=== PATIENT | female | born 1960 | race Asian ===

== ENCOUNTER 2017-10-08 14:03 | Inpatient (IN) | payer MEDICAID ==
[~2017-10-08] VITALS: Ht 154.9 cm; Wt 51.0 kg
[2017-10-08] MEDS ORDERED: HALOPERIDOL 5 MG TABLET PO PRN (16:15)
[2017-10-08] MEDS ORDERED: ZOLPIDEM TARTRATE 10 MG TABLET PO PRN (16:15)
[2017-10-08] MEDS ORDERED: LORazepam 2 MG TABLET PO PRN (16:15)
[2017-10-08 17:07] VITALS: BP 115/70
[2017-10-08] MEDS ORDERED: INFLUENZA VIRUS VACCINE QVS 2017-18 (3YR+)/PF 60 MCG/0.5 ML SYRINGE IM ONE (19:45)
[2017-10-09 05:40] VITALS: BP 115/69
[2017-10-09 09:02] LABS: HEMATOCRIT 39.9 % (36-46); HEMOGLOBIN 12.8 g/dL (12.0-16.0); MEAN CORPUSCULAR HEMOGLOBIN 22.8 pg (26.0-34.0); MEAN CORPUSCULAR HGB CONC 32.1 G/dL (31.0-37.0); MEAN CORPUSCULAR VOLUME 71 fL (80-100); PLATELET COUNT (AUTO) 301 K/uL (150-450); RED BLOOD CELL COUNT(AUTO) 5.62 MIL/uL (4.00-5.20); WHITE BLOOD COUNT (AUTO) 4.5 K/uL (4.5-11.0)
[2017-10-09 09:06] VITALS: BP 111/69
[2017-10-09 09:13] LABS: HEMOGLOBIN A1C 4.6 % (4.5-6.2)
[2017-10-09 09:14] LABS: ALANINE AMINOTRANSFERASE 23 U/L (12-78); ALBUMIN 4.1 g/dL (3.4-5.0); ANION GAP 7 mmol/L (8-16); ASPARTATE AMINOTRANSFERASE 18 U/L (15-37); BILIRUBIN,TOTAL 0.3 mg/dL (0.1-1.0); CALCIUM, TOTAL 9.1 mg/dL (8.8-10.5); CARBON DIOXIDE 30 mmol/L (22-29); CHLORIDE 105 mmol/L (98-107); CREATININE 0.62 mg/dL (0.60-1.30); GLOMERULAR FILTR. RATE CALC > 60 mL/min (>60); POTASSIUM 4.5 mmol/L (3.5-5.1); SODIUM SERUM 142 mmol/L (136-145); THYROID STIMULATING HORMONE 0.91 uIU/mL (0.36-3.74); TOTAL PROTEIN, SERUM 7.1 g/dL (6.4-8.2); UREA NITROGEN, BLOOD 18 mg/dL (7-18)
[2017-10-09 09:28] LABS: CHOL/HDL RATIO 2.8 (3.9-5.7)
[2017-10-09 09:44] LABS: BAND NEUTROPHILS % (MANUAL) 9 % (1-5); LYMPHOCYTES % (MANUAL) 49 % (22-44); TOTAL CELLS COUNTED 100
[2017-10-09 09:45] LABS: RBC MORPHOLOGY COMMENT ABNORMAL RBC MORPH
[2017-10-09] MEDS ORDERED: IBUPROFEN 600 MG TABLET PO PRN (13:45)
[2017-10-09] MEDS: ACETAMINOPHEN 325 MG TABLET PO PRN (13:58)
[2017-10-09 14:00] VITALS: BP 120/86
[2017-10-09 16:05] VITALS: BP 102/60
[2017-10-10 06:41] VITALS: BP 112/63
[2017-10-10 08:29] VITALS: BP 106/64
[2017-10-10 16:10] VITALS: BP_SYST 124; BP_DIAS 45; BP_DIAS 75
[2017-10-11 00:03] VITALS: BP 113/62
[2017-10-11 08:30] VITALS: BP 106/65
[2017-10-11 16:14] VITALS: BP 138/62
[2017-10-12 05:59] VITALS: BP 109/60
[2017-10-12 08:10] VITALS: BP 106/62
[2017-10-12] MEDS: ACETAMINOPHEN 325 MG TABLET PO PRN (09:17)
== END 2017-10-12 16:01 | disposition home or self-care (01) | DRG 751 ==
LOC: B3A 16:17 → B2S 10-10 21:25
PROVIDERS: ADMIT Psychiatry & Neurology Psychiatry; ATTEND Psychiatry & Neurology Psychiatry
DX: F33.2 Major depressive disorder, recurrent severe without psychotic features (principal); R45.851 Suicidal ideations; F39 Unspecified mood [affective] disorder; J45.909 Unspecified asthma, uncomplicated; M19.90 Unspecified osteoarthritis, unspecified site; Z59.0 Homelessness; Z88.0 Allergy status to penicillin; Z88.1 Allergy status to other antibiotic agents; Z88.2 Allergy status to sulfonamides; Z91.5 Personal history of self-harm; Z83.3 Family history of diabetes mellitus; Z28.21 Immunization not carried out because of patient refusal
CPT/HCPCS: 83036; 84439; 84443; 87081